=== PATIENT | male | born 1965 | race Caucasian/White ===

== ENCOUNTER 2018-12-03 14:58 | Emergency (ER) | payer OTHER ==
[2018-12-03] MEDS ORDERED: ONDANSETRON 4 MG/2 ML VIAL IVPUSH ONE (15:12)
[2018-12-03] MEDS ORDERED: SODIUM CHLORIDE 1,000 ML IV STA (15:12)
[2018-12-03] MEDS ORDERED: ONDANSETRON 4 MG/2 ML VIAL ONE (15:22)
[2018-12-03 15:36] VITALS: PULSE 62; TEMP 97.7; BMI 32.5
[2018-12-03 15:43] LABS: HEMATOCRIT 43.5 % (35.4-49); MCHC 34.5 g/dl (32.0-35.9); MEAN CELL VOLUME 92.7 fl (80-96); MEAN PLT VOLUME 8.1 fl (7.5-11.1); PLATELET COUNT 114 K/MM3 (134-434); RDW 13.9 % (11.9-15.9); WHITE BLOOD COUNT 8.8 K/mm3 (4.0-10.8)
[2018-12-03 15:53] LABS: ALBUMIN 4.6 g/dl (3.4-5.0); BILIRUBIN,TOTAL 1.1 mg/dl (0.2-1); CALCIUM 8.2 mg/dl (8.5-10); CREATININE 0.7 mg/dl (0.55-1.3); POTASSIUM 3.3 mmol/L (3.5-5.1); TOT PROT 7.6 g/dl (6.4-8.2)
[2018-12-03 16:09] VITALS: BP 190/100
--- NOTE | 2018-12-03 16:23 | PDOC ---
Documentation entered by Shyann Serrano SCRIBE, acting as scribe for Jayy Gamez MD. Jayy Gamez MD: This documentation has been prepared by the brigetteibeZach Lincy, SCRIBE, under my direction and personally reviewed by me in its entirety. I confirm that the documentation accurately reflects all work, treatment, procedures, and medical decision making performed by me. History of Present Illness - General Chief Complaint: Nausea/Vomiting Stated Complaint: N/V History Source: Patient Exam Limitations: No Limitations - History of Present Illness Initial Comments: 12/03/18 15:20 The patient is a 53-year-old male with a past medical history significant for HTN (not compliant with medication, states, I ran out of medication a long time ago) who presents to the emergency department with dizziness and vomiting. The patient reports he woke up his usual self, and he was watching TV and playing on his phone, when he got up, he had an acute onset of dizziness. The patient describes the dizziness as room spinning, felt more when standing up. The patient reports associated symptoms of vomiting. The patient reports prior similar episodes in the past. The patient reports he went out last night, had 4 beers and a medium-rare hamburger. Denies fever, chills, chest pain, shortness of breath, weakness, numbness, tingling or diarrhea. Denies head pressure with bending down. Denies trauma or recent falls. Allergies: NKDA Social history: No reported history of tobacco, alcohol or recreational drugs Surgical history: None reported Past History - Past Medical History Allergies/Adverse Reactions: Allergies Allergy/AdvReac Type Severity Reaction Status Date / Time No Known Allergies Allergy Verified 12/03/18 15:07 Home Medications: Ambulatory Orders Meclizine HCl [Antivert -] 25 mg PO TID #10 tablet 12/03/18 Ondansetron [Zofran *Odt*] 4 mg SL TID #10 od.tablet 12/03/18 HTN: Yes - Psycho Social/Smoking Cessation Hx Smoking Status: No Smoking History: Never smoked Number of Cigarettes Smoked Daily: 0 Review of Systems - Review of Systems Able to Perform ROS?: Yes Comments:: 12/03/18 15:22 Able to Perform ROS?: Yes Constitutional: Yes: Symptoms Reported, See HPI, No: Chills, Diaphoresis, Fever, Loss of Appetite, Malaise, Weakness, Weight Stable, Unintentional Wgt. Loss, Unexplained wgt Loss, Other HEENTM: Yes: Symptoms Reported, See HPI. No: Eye Pain, Blurred Vision, Tearing, Recent change in vision, Double Vision, Cataracts, Ear Pain, Ocular Prosthesis, Ear Discharge, Nose Pain, Nose Congestion, Tinnitus, Nose Bleeding, Hearing Loss, Throat Pain, Throat Swelling , Mouth Pain, Dental Problems, Difficulty Swallowing, Mouth Swelling, Other Respiratory: Yes: Symptoms reported, See HPI. No: Cough, Orthopnea, Shortness of Breath, SOB with Exertion, SOB at Rest, Stridor, Wheezing, Productive cough, Hemoptysis, Other Cardiac (ROS): Yes: Symptoms Reported, See HPI. No: Chest Pain, Edema, Irregular Heart Rate, Lightheadedness, Palpitations, Syncope, Chest Tightness, Other ABD/GI: Yes: +vomiting. No: Abdominal Distended, Abd. Pain w/ defecation, Blood Streaked Bowels, Constipated, Diarrhea, Difficulty Swallowing, Nausea, Poor Appetite, Poor Fluid Intake, Rectal Bleeding, Indigestion, Abdominal cramping, Tarry Stools, Other Musculoskeletal: Yes: Symptoms Reported, See HPI. No: Back Pain, Gout, Joint Pain, Joint Swelling, Muscle Pain, Muscle Weakness, Neck Pain, Joint Stiffness, Other Neurological: Yes: +dizziness. No: Headache, Numbness, Paresthesia, Pre-Existing Deficit, Seizure, Tingling, Tremors, Weakness, Unsteady Gait, Ataxia, Other All Other Systems: Reviewed and Negative *Physical Exam - Vital Signs Last Vital Signs Temp Pulse Resp BP Pulse Ox 97.7 F 62 16 215/96 H 95 12/03/18 14:59 12/03/18 14:59 12/03/18 14:59 12/03/18 14:59 12/03/18 14:59 - Physical Exam Comments: 12/03/18 15:23 General Appearance: Appropriately Dressed, Nourished. No: Apparent Distress, Disheveled, Mild Distress, Moderate Distress, Severe Distress, Intoxicated, Cachetic, Obese, Thin. HEENT: positive: +bilateral tympanic fluid. EOMI, EMMANUEL, Normal ENT Inspection, Normal Voice, Pharynx Normal. negative: Pale Conjunctiva, Scleral Icterus (R or L) Tonsillar Exudate, Tonsillar Erythema, Nasal Congestion, TM Bulging, TM Dull, TM Erythema, Lesions, Yates. Respiratory/Chest: positive: Lungs Clear, Normal Breath Sounds. negative: Accessory Muscle Use, Respiratory Distress, Crackles, Rales, Rhonchi. Cardiovascular: positive: Regular Rate, Regular Rhythm, S1, S2. Gastrointestinal/Abdominal: positive: Normal Bowel Sounds, Flat, Soft. negative : Distended, Guarding, Rebound, Tenderness, Hernia, Mass, Hepatomegaly, Spleenomegaly, Other Neurologic: +bilateral Nystagmus positive: engine specialist II-XII NML intact, Fully Oriented , Alert, Normal Mood/Affect, Normal Response. Heart Score/ECG Review - ECG Impressions Comment:: 12/03/18 15:50 EKG done at 15:38. Normal sinus rhythm at 66 bpm. T wave inversion at Lead 1 and V6. Otherwise normal. ED Treatment Course - LABORATORY CBC & Chemistry Diagram: 12/03/18 15:30 12/03/18 15:30 - RADIOLOGY Radiology Studies Ordered: Category Date Time Status HEAD CT WITHOUT CONTRAST [CT] Stat CT Scan 12/03/18 15:12 Ordered - Medications Given in the ED: ED Medications Discontinued Medications Generic Name Dose Route Start Last Admin Trade Name Freq PRN Reason Stop Dose Admin Ondansetron HCl 4 mg 12/03/18 15:12 12/03/18 15:26 Zofran Injection IVPUSH 12/03/18 15:13 4 mg ONCE ONE Administration ED Progress Note - Progress Note Progress Note: 12/03/18 16:16 53 y/o male with dizziness and vomiting Nystagmus on exam Given IVF and Zofran Feeling better, vertigo improved Upon labs review with patient, it appears pt may be diabetic Advised follow up with PMD for BP as well, BP down to 190/100 Pt will be given Meclizine and Zofran po If worsen return to ER Pt is in agreement with plan 12/03/18 16:21 CT head neg, may require MRI if worsens Pt also drinks daily, low platelets, no sign of delirium tremens noted Discharge - Discharge Information Problems reviewed: Yes Clinical Impression/Diagnosis: Vertigo, Hyperglycemia Hypertension Qualifiers: Hypertension type: unspecified Qualified Code(s): I10 - Essential (primary) hypertension Eustachian tube dysfunction Qualifiers: Laterality: bilateral Qualified Code(s): H69.83 - Other specified disorders of Eustachian tube, bilateral Condition: Improved Disposition: HOME - Admission No - Follow up/Referral - Patient Discharge Instructions Patient Printed Discharge Instructions: DI for Eustachian Tube Dysfunction- Adult, DI for Vertigo, Essential Hypertension, DI for Hyperglycemia -- Adult Additional Instructions: Meclizine 25 mg every 8 hr as needed Zofran ODT 4 mg every 8 hr as needed for Nausea Fluids, rest Follow up with PMD If worsen return to ER - Post Discharge Activity NIH Stroke Scale - Last Known Well Date/Time & Onset Date Last Known Well: 12/03/18 Time Last Known Well: 09:00 - Initial Evaluation Level of consciousness: Alert Ask patient the month and their age: Answers both correctly Ask patient to open & close eyes; make fist and let go: Obeys both correctly Best gaze (horizontal eye movement): Normal Visual field testing: No visual field loss Facial paresis (Show teeth/raise eyebrows/close eyes tight): Normal symmetrical movement Motor Function: Left Arm: Normal Motor Function: Right Arm: Normal (extends arm 90 (or 45) degrees for 10 seconds without drift Motor Function: Left Leg: Normal (extends leg 30 degrees for 5 seconds without drift) Motor Function: Right Leg: Normal (extends leg 30 degrees for 5 seconds without drift) Limb Ataxia: No ataxia Sensory(Use pinprick test arms,legs,trunk,face/side to side): Normal Best language (Describe picture, name items, read sentences): No Aphasia Dysarthria (read several words): Normal articulation Extinction and Inattention: No abnormality - Total Score NIH Stroke Scale Score: 0
[2018-12-03 17:05] LABS: PLATELET ESTIMATE ADEQUATE
--- NOTE | 2018-12-04 15:58 | EKG ---
Test Reason : Blood Pressure : / mmHG Vent. Rate : 066 BPM Atrial Rate : 066 BPM P-R Int : 176 ms QRS Dur : 102 ms QT Int : 478 ms P-R-T Axes : 061 060 112 degrees QTc Int : 501 ms NORMAL SINUS RHYTHM NONSPECIFIC ST AND T WAVE ABNORMALITY ABNORMAL ECG NO PREVIOUS ECGS AVAILABLE Confirmed by NATY HUANG, ADRI ([id number]) on 12/04/2018 3:58:30 PM Referred By: DR NICHOLSON Confirmed By:ADRI ALFONSO MD
== END 2018-12-03 17:29 | disposition home or self-care (01) ==
LOC: FER 14:58
PROC: 3E033GC Introduction of Other Therapeutic Substance into Peripheral Vein, Percutaneous Approach (ICD-10-PCS; principal; 2018-12-03)
DX: R73.9 Hyperglycemia, unspecified (principal); R42 Dizziness and giddiness; I10 Essential (primary) hypertension; H69.83 Other specified disorders of Eustachian tube, bilateral; Z91.14 Patient's other noncompliance with medication regimen
CPT/HCPCS: 36415; 70450-TC; 80053; 84484; 85025; 93005; 99284-25; J7030